=== PATIENT | female | born 2000 | race Caucasian/White ===

== ENCOUNTER → 2021-03-08 19:24 | Emergency (ER) | payer OTHER, SELFPAY ==
[2021-03-08 19:26] VITALS: BP 122/75; PULSE 85; RESP 8; TEMP 35.8; O2SAT 97; BMI 21.5
--- NOTE | 2021-03-08 19:30 | RAD_ITS ---
STUDY: X-RAY LEFT FOOT, FIRST TOE REASON FOR EXAM: Female, 21 years old. injury TECHNIQUE: 3 view(s) of the toe were obtained. COMPARISON: None. FINDINGS: Normal visualized metatarsus. Normal metatarsophalangeal (M.T.P) joint. Normal phalanges and interphalangeal joint. There is no demonstrated fracture. The soft tissue structures are unremarkable. RAD/Toe(s) Min 2 Views IMPRESSION: Normal x-ray of the toe. Electronically Signed: Hector Jean MD at 19:53 EDT , Service support ,
--- NOTE | 2021-03-08 20:04 | ED.VIS.LOWEX ---
HPI History of Present Illness Chief Complaint: Lower Extremity Injury Informant: patient Occured/Mechanism Mechanism/Context: Yes injury Onset/Context/Timing Onset: Today Context: Sudden Onset Timing: Continuous Quality of Pain: Dull Current Severity: Mild Maximum Severity: Mild Narrative Narrative: Patient is a healthy 21-year-old female with medical history significant for epilepsy the presents to the emergency department with toe injury. Patient states her playing hockey. Someone had a puck and it struck her in the left great toe. She had immediate pain and bleeding. She was still able to bear weight. She denies other injury. PFSH PFSH Home Medications clindamycin HCl 300 mg PO Q8 #30 capsule 03/08/21 [Rx Last Taken Unknown] Allergy/AdvReac Type Severity Reaction Status Date / Time amoxicillin Allergy Swelling Verified 03/08/21 19:28 penicillin G Allergy Swelling Verified 03/08/21 19:28 ROS ROS ED Constitutional Constitutional ED: Denies chills or fever(s) Eyes Eyes: Denies blurry vision or change in vision ENT ENT ED: Denies ear pain or sore throat Cardiovascular Cardiovascular: Denies chest pain or palpitations Respiratory/Chest Respiratory/Chest: Denies cough, dyspnea or dyspnea on exertion Gastrointestinal Gastrointestinal: Denies abdominal pain, nausea or vomiting Genitourinary Genitourinary ED: Denies dysuria or urinary frequency Musculoskeletal Musculoskeletal: Denies arthralgias or myalgias Integumentary Denies rash Neurologic Neurologic: Denies headache(s) or paresthesias Psychiatric Psychiatric: Denies anxiety or depression Endocrine Endocrinology: Denies polydipsia or polyuria Allergic/Immunologic Allergic/Immunologic ED: Denies urticaria EXAM Physical Exam Const Vital Signs: 03/08/21 19:26 Temperature 96.5 F L Temperature Source Temporal Pulse Rate 85 Respiratory Rate 8 L Blood Pressure 122/75 H Blood Pressure Mean 90 Pulse Ox 97 Oxygen Delivery Method Room Air Positive well nourished and well developed General Appearance ED: well developed HEENT Reports normocephalic, head/scalp atraumatic and moist mucous membranes Eyes PERRL and EOMs intact bilaterally Neck no lymphadenopathy and supple General: Negative for tenderness Chest Wall inspection of chest normal Resp normal respiratory effort and clear to auscultation bilaterally Cardio regular rate, regular rhythm and no murmurs GI normal to inspection, nondistended, normoactive bowel sounds Palpation: Negative for tender, guarding or rebound tenderness present Back/Spine no CVA tenderness Cervical Spine: Negative for cervical spine tenderness Thoracic Spine / Upper Back: Negative for thoracic spinal tenderness Extremity General Extremety ED: Negative for tenderness Left Lower Extremity: foot and digits Positive for inspection (Patient has small) Neuro oriented x3 and CN's II-XII intact bilaterally Neuro Narrative: No focal deficits appreciated. Sensorium / Orientation: alert Psych mental status grossly normal Skin no rashes or lesions noted, no wounds and skin turgor normal MDM MDM MDM Narrative Medical decision making narrative: The patient presents with small linear laceration from contusion. It does not involve the nailbed. It is right at the edge of the nail. It is well approximated with no active bleeding. X-rays were obtained. There is no evidence of acute fracture. These were reviewed by both myself and the radiologist. Patient's wound was cleaned and dressed. She be placed in a postoperative shoe. She will continue topical antibiotics. She will be discharged home. Radiography Diagnostic Testing: Radiology Impression Toe X-Ray 03/08/21 19:30 IMPRESSION: Normal x-ray of the toe. Electronically Signed: Hector Jean MD at 19:53 EDT , Service support , Discharge Plan Triage Chief Complaint: Lower Extremity Injury ED Provider: Nehemiah Webster Dx/Rx/DC Orders Instructions: ED Contusion, Lower Extremity Prescriptions: New clindamycin HCl 150 MG capsule 300 mg PO Q8 Qty: 30 RF: 0 Primary Care Provider: NOT,DEFINED Referrals: NOT,DEFINED [Primary Care Provider] -
== END | disposition home or self-care (01) ==
PROVIDERS: Emergency Provider Emergency Medicine
DX: S90.122A Contusion of left lesser toe(s) without damage to nail, initial encounter (principal); W20.8XXA Other cause of strike by thrown, projected or falling object, initial encounter; Y93.22 Activity, ice hockey; Y92.89 Other specified places as the place of occurrence of the external cause; Y99.8 Other external cause status; G40.909 Epilepsy, unspecified, not intractable, without status epilepticus
CPT/HCPCS: 73660; 99282